=== PATIENT | female | born 1995 | race Caucasian/White ===

== ENCOUNTER 2018-02-28 16:25 | Outpatient (CLI) | payer OTHER ==
[2018-02-28 17:54] LABS: HGB - HEMOGLOBIN 10.3 g/dL (12.0-16.0); MEAN CORPUSCULAR HEMOGLOBIN 28.7 pg (27.0-31.0); MEAN CORPUSCULAR HGB CONC 33.6 g/dL (32.0-36.0); MEAN CORPUSCULAR VOLUME 85.4 fL (81.0-99.0); MEAN PLATELET VOLUME 9.1 fL (7.9-10.8); RED BLOOD COUNT 3.59 10^6/uL (4.20-5.40); RED CELL DISTRIBUTION WIDTH 13.1 % (12.0-15.0); WHITE BLOOD COUNT 11.2 x10^3/uL (4.8-10.8)
== END 2018-02-28 16:26 | disposition home or self-care (01) ==
LOC: LAB 16:25
PROVIDERS: ATTEND Nurse Practitioner Obstetrics & Gynecology
DX: Z36.9 Encounter for antenatal screening, unspecified (principal)
CPT/HCPCS: 82950; 86850

== ENCOUNTER 2018-04-29 13:08 | Outpatient (CLI) | payer OTHER ==
--- NOTE | 2018-04-29 16:14 | Ultrasound Report ---
OB FOLLOWUP: 04/29/2018 CLINICAL INDICATION: Two vessel cord, check growth. TECHNIQUE: Real-time scanning was performed with paper sales representative static images obtained. LAST MENSTRUAL PERIOD: 09/01/2017 Clinical Age: 34 weeks 2 days US Age: 35 weeks 4 days EFW Hadlock: 2581 grams EFW% Hadlock: 58% Heart Rate: 141 bpm EDC: 06/08/2018 US EDC: 05/30/2018 BPD Hadlock: 36 weeks 5 days; Mean mm 90 HC Hadlock: 36 weeks 4 days; Mean mm 323 AC Hadlock: 35 weeks 1 day; Mean mm 312 FL Hadlock: 33 weeks 5 days; Mean mm 65 Presentation: cephalic Placental Location: anterior Cervical Length: 3.4 cm Amniotic Fluid: ROSA 13.5 cm; MVP 4.9 cm FINDINGS There is a single viable intrauterine gestation, in cephalic presentation. heart rate is 141 BPM. Placenta is anterior, without evidence of previa. Amniotic fluid volume is normal, with ROSA of 13.5. By size, the fetus measures 35 weeks 4 days (34 weeks 2 days provided dating). Estimated weight by Hadlock method is 2581 grams, 58th percentile for provided dating. Note is again made of a two-vessel umbilical cord. IMPRESSION: SINGLE VIABLE INTRAUTERINE GESTATION, WITH SIZE IN KEEPING WITH THE PROVIDED DATA. TD: 04/29/2018 14:50 MTDD
== END 2018-04-29 13:09 | disposition home or self-care (01) ==
LOC: DI 13:08
PROVIDERS: ATTEND Registered Nurse
DX: Q27.0 Congenital absence and hypoplasia of umbilical artery (principal)
CPT/HCPCS: 76816

== ENCOUNTER 2018-05-13 14:54 | Outpatient (CLI) | payer OTHER | END 2018-05-13 14:55 | disposition home or self-care (01) | LOC: LAB.R 14:54 | PROVIDERS: ATTEND Nurse Practitioner Obstetrics & Gynecology | DX: Z36.85 Encounter for antenatal screening for Streptococcus B (principal) | CPT/HCPCS: 87081 ==

== ENCOUNTER 2018-05-13 15:04 | Outpatient (CLI) | payer OTHER ==
[2018-05-13 15:58] LABS: BASOPHILS % (AUTO) 0.1 %; EOSINOPHILS # (AUTO) 0.1 10^3/uL (0.0-0.7); EOSINOPHILS % (AUTO) 0.7 %; HGB - HEMOGLOBIN 9.5 g/dL (12.0-16.0); LYMPHOCYTES % (AUTO) 18.3 %; MEAN CORPUSCULAR HEMOGLOBIN 27.8 pg (27.0-31.0); MEAN CORPUSCULAR HGB CONC 33.7 g/dL (32.0-36.0); MEAN CORPUSCULAR VOLUME 82.6 fL (81.0-99.0); MEAN PLATELET VOLUME 9.9 fL (7.9-10.8); MONOCYTES # (AUTO) 0.7 10^3/uL (0.0-1.0); MONOCYTES % (AUTO) 6.4 %; NEUTROPHILS # (AUTO) 8.1 10^3/uL (1.5-6.6); NEUTROPHILS % (AUTO) 74.5 %; PLT - PLATELET COUNT 192 10^3/uL (130-450); RED BLOOD COUNT 3.43 10^6/uL (4.20-5.40); RED CELL DISTRIBUTION WIDTH 13.8 % (12.0-15.0); WHITE BLOOD COUNT 10.8 x10^3/uL (4.8-10.8)
[2018-05-13 16:00] LABS: URIC ACID 3.7 mg/dL (2.6-7.2)
[2018-05-13 16:58] LABS: CREATININE,URINE 43.1 mg/dL; TOTAL PROTEIN,URINE TIMED < 6 mg/dL
[2018-05-13 17:51] VITALS: BP 129/70
== END 2018-05-13 16:20 | disposition home or self-care (01) ==
LOC: WFO 15:04 → FBP 15:05 → WFO 16:20
PROVIDERS: ATTEND Nurse Practitioner Obstetrics & Gynecology
DX: O13.3 Gestational [pregnancy-induced] hypertension without significant proteinuria, third trimester (principal); Z3A.36 36 weeks gestation of pregnancy; Z36.85 Encounter for antenatal screening for Streptococcus B
CPT/HCPCS: 59025; 82570; 83615; 84156; 84450; 84550; 85025; 87081

== ENCOUNTER 2018-05-14 08:00 | Outpatient (CLI) | payer OTHER ==
[2018-05-14 20:01] LABS: TOTAL PROTEIN,URINE TIMED 10 mg/dL
[2018-05-14 20:04] LABS: TOTAL PROTEIN 24HR,URINE 160 mg/24hr (40-150); TOTAL VOLUME 24HRS,URINE 1600 mL
== END 2018-05-14 08:01 | disposition home or self-care (01) ==
LOC: LAB.R 08:00
PROVIDERS: ATTEND Nurse Practitioner Obstetrics & Gynecology
DX: O13.3 Gestational [pregnancy-induced] hypertension without significant proteinuria, third trimester (principal)
CPT/HCPCS: 84156

== ENCOUNTER 2018-06-02 13:24 | Inpatient (IN) | payer OTHER ==
[~2018-06-02 13:24] MED LIST: LACTATED RINGERS 1,000 ML IV ONE; OXYTOCIN/SODIUM CHLORIDE 500 ML IV ONE; SODIUM CHLORIDE FLUSH 0.9% 10 ML SYRINGE ONE
[2018-06-02] MEDS ORDERED: OXYTOCIN/SODIUM CHLORIDE 250 ML IV ONE (13:52)
[2018-06-02] MEDS ORDERED: ACETAMINOPHEN 325 MG TABLET PO PRN (13:52)
[2018-06-02] MEDS ORDERED: SODIUM CHLORIDE FLUSH 0.9% 10 ML SYRINGE IVP PRN (13:52)
[2018-06-02] MEDS ORDERED: fentaNYL 100 MCG/2 ML VIAL IVP PRN (13:52)
[2018-06-02] MEDS ORDERED: PENICILLIN G POTASSIUM 5,000,000 UNIT in SODIUM CHLORIDE 0.9% MINIBAG 100 ML IV ONE (13:52)
[2018-06-02] MEDS: LACTATED RINGERS 1,000 ML IV SCH ×2 (14:00→22:12)
--- NOTE | 2018-06-02 14:01 | HISTORY & PHYSICAL EXAMINATION ---
Admit History - Instructions [place]: -Left hand click circles element as positive or present. -Right hand click slashes element as negative or not present. - Visit Reason Visit Reason: Other (gestational HTN w/o s/sx PET; Pitocin induction of labor in setting of favorable cervical status) - : 1 Parity: 0 Premature: 0 Ectopic: 0 : 0 Care: positive: [facility] (Transfer @ 21 weeks) Risk/History: positive: None Complications This : positive: induced HTN, Other ( anemia; 2VC w/ EFW 58th percentile in 3rd trimester) Smoking Status: Never smoker - Mother's Labs Mother's Blood Type: positive: B Mother's RH: positive: Positive GBS: positive: Group B Strep Positive Rubella Status: positive: Immune Meds/Allgy - Allergies Allergies/Adverse Reactions: Allergies Allergy/AdvReac Type Severity Reaction Status Date / Time No Known Drug Allergies Allergy Verified 05/13/18 15:24 Review of Systems - Constitutional Constitutional: denies: Fatigue, Fever, Chills - Eyes Eyes: denies: Blurred vision, Spots in vision, Dipolpia - Cardiovascular Cariovascular: reports: Edema. denies: Irregular heart rate, Palpitations, Chest pain - Respiratory Respiratory: reports: SOB with exertion. denies: Cough, Sputum production, SOB at rest - Gastrointestinal Gastrointestinal: denies: Abdominal pain, Constipation, Diarrhea, Change in bowel habits, Nausea, Vomiting - Genitourinary Genitourinary: reports: Frequency, Urgency. denies: Dysuria - Musculoskeletal Musculoskeletal: reports: Back pain. denies: Muscle pain, Muscle aches - Integumentary Integumentary: denies: Rash, Pruritis, Lesions - Neurological Neurological: denies: General weakness, Focal weakness, Headache, Dizziness, Numbness - Psychiatric Psychiatric: reports: Anxiety. denies: Depression - Hematologic/Lymphatic Hematologic/Lymphatic: reports: Anemia - All Other Systems All Other Systems: reports: Other (No changes in vaginal d/c, no LOF/VB. +FM) Physical - Abdominal Exam Contraction Frequency (min/apart): rare Contraction Intensity: positive: Mild Uterine Resting Tone: positive: Soft - Monitoring Heart Rate Baseline: 130 Strip Review: positive: Category I - Presentation Presentation: positive: Vertex - Vaginal Exam Membranes: positive: Membranes intact Dilation (in cm): 3 Effacement (%): 75 Station: positive: 0 Cervical Position: positive: Anterior (soft) - Speculum Exam Speculum Exam Performed: positive: No Findings: negative: Gross leak - Other Notes Labor Progress Note/Additional Text: Dung Phillips is a 23 y/o @ 39w1d by early first trimester US who received care beginning @ 9 weeks at [facility] then chose to transfer care @ 21 weeks' gestation to [facility]. She was seen for a total of 12 visits. Her care was complicated by 2VC on US w/o growth restriction. She had ALISHA in the third trimester that demonstrated EFW 58th percentile. She additionally has mild anemia & a positive GBS screening. She developed increased BP in the late 3rd trimester that has now been persistently >140/90 w/ o severe-range BPs & no s/sx PET. PMH: Unremarkable PSH: None POBhx: primiparous Pgynhx: NILM pap 2017, denies hx of STI Famhx: non-contributory PE: GEN: AAOX3, NAD [place] gravid female HEENT: Grossly normocephalic, atraumatic LUNGS: b/l CTA t/o HEART: RRR nls1s2, no murmur ABD: gravid, NT, ND, lie longitudinal, presentation cephalic EFW 7.5-8# : No lesion, SVE: 3/75/0, antioer, soft MS: FROM t/o, no deformity; +1 b/l pedal edema SKIN: warm, well-perfused, c/d/i NEURO: no focal deficit PSYCH: mild anxiety, no depression; otherwise normal mood & affect Plan for Labor - Plan For Labor I expect patient to be DC'd or transferred within 96 hours.: Yes Plan for Labor: 1. Admit 2. PET labs 3. Careful BP monitoring 4. PARQ Pitocin, begin Pitocin infusion & titrate per protocol to adequate contraction pattern by tocometry 5. Epidural per pt request 6. Reassess cervical status x4 hours, earlier PRN
[2018-06-02 14:33] LABS: BASOPHILS % (AUTO) 0.2 %; EOSINOPHILS # (AUTO) 0.1 10^3/uL (0.0-0.7); EOSINOPHILS % (AUTO) 0.6 %; HGB - HEMOGLOBIN 10.7 g/dL (12.0-16.0); MEAN CORPUSCULAR HEMOGLOBIN 27.7 pg (27.0-31.0); MEAN CORPUSCULAR HGB CONC 33.7 g/dL (32.0-36.0); MEAN CORPUSCULAR VOLUME 82.1 fL (81.0-99.0); MEAN PLATELET VOLUME 9.7 fL (7.9-10.8); MONOCYTES # (AUTO) 0.5 10^3/uL (0.0-1.0); MONOCYTES % (AUTO) 4.8 %; NEUTROPHILS # (AUTO) 7.3 10^3/uL (1.5-6.6); NEUTROPHILS % (AUTO) 74.4 %; PLT - PLATELET COUNT 206 10^3/uL (130-450); RED BLOOD COUNT 3.85 10^6/uL (4.20-5.40); RED CELL DISTRIBUTION WIDTH 14.9 % (12.0-15.0); WHITE BLOOD COUNT 9.8 x10^3/uL (4.8-10.8)
[2018-06-02 14:53] LABS: BILIRUBIN,URINE NEGATIVE (NEGATIVE); GLUCOSE, URINE (UA) NEGATIVE (NEGATIVE); KETONES,URINE (UA) NEGATIVE (NEGATIVE); LEUKOCYTE ESTERASE, URINE NEGATIVE (NEGATIVE); NITRITE,URINE NEGATIVE (NEGATIVE); OCCULT BLOOD,URINE NEGATIVE (NEGATIVE); PROTEIN,URINE NEGATIVE (NEGATIVE); UROBILINOGEN,URINE 0.2 (NORMAL) E.U./dL (NORMAL)
[2018-06-02 14:57] LABS: CLARITY,URINE CLEAR (CLEAR)
[2018-06-02 14:57] LABS: CREATININE 0.4 mg/dL (0.4-1.0); URIC ACID 3.8 mg/dL (2.6-7.2)
[2018-06-02] MEDS: OXYTOCIN/SODIUM CHLORIDE 500 ML IV SCH (15:00)
[2018-06-02 15:03] LABS: CREATININE,URINE 67.8 mg/dL; PROTEIN/CREATININE RATIO,URINE 0.2 (<=0.2)
[2018-06-02] MEDS ORDERED: fent/BUPIV 2 MCG/0.125% 250 ML EP ONE (16:20)
[2018-06-02] MEDS ORDERED: NALOXONE 0.4 MG/ML VIAL IVP PRN (16:38)
[2018-06-02] MEDS ORDERED: NALBUPHINE 10 MG/ML AMP IVP PRN (16:38)
[2018-06-02] MEDS ORDERED: ePHEDrine 50 MG/ML VIAL IVP PRN (16:38)
[2018-06-02] MEDS ORDERED: fent/BUPIV 2 MCG/0.125% 250 ML EP PRN (16:38)
[2018-06-02] MEDS ORDERED: ONDANSETRON 4 MG/2 ML VIAL IVP PRN (16:38)
[2018-06-02] MEDS ORDERED: METOCLOPRAMIDE 10 MG/2 ML VIAL IVP PRN (16:38)
[2018-06-02] MEDS ORDERED: diphenhydrAMINE INJ 50 MG/ML VIAL IVP PRN (16:38)
[2018-06-02] MEDS ORDERED: LACTATED RINGERS 500 ML IV ONE (16:38)
[2018-06-02] MEDS: PENICILLIN G POTASSIUM 2,500,000 UNIT in SODIUM CHLORIDE 0.9% 100ML 100 ML IV SCH ×2 (19:17→23:00)
[2018-06-02] MEDS: SODIUM CHLORIDE FLUSH 0.9% 10 ML SYRINGE IVP SCH (19:43)
[2018-06-02] MEDS: CALCIUM CARBONATE CHEW 500 MG TABLET PO PRN (21:20)
[2018-06-02] MEDS: ONDANSETRON 4 MG/2 ML VIAL IVP PRN (23:27)
--- NOTE | 2018-06-03 01:28 | PROVIDER PROGRESS NOTE ---
Labor Progress Note - Uterine Monitoring Uterine Monitoring Mode: positive: External toco Contraction Frequency (min/apart): 3-4 Contraction Intensity: positive: Mild to moderate Uterine Resting Tone: positive: Soft - Monitoring Monitor Mode: positive: External ultrasound Heart Rate Baseline: 130 Heart Rate Variability: positive: Moderate (6-25 bmp) Accelerations: positive: Present, 15x15 Decelerations: positive: None Strip Review: positive: Category I - Vaginal Exam Dilation (in cm): 3 Effacement (%): 75 Station: -1 (per RN) - Labor Progress Note Labor Progress Note/Additional Text: S: Dung is able to rest w/ epidural anesthesia in place. She has been sleeping intermittently. Family @ bedside, supportive O: AAOx3, NAD [place] gravid female VSS EFM: BL 130bpm, +accels, no decels, mod jennifer TOCO: UCs q3-4 min x60 seconds, palp moderate SVE: 3/75/-1 per RN on 10mU/min of Pitocin A: 23 y/o @ 39w2d by first trimester US, gestational HTN w/o s/sx PET Normotensive @ present w/o severe-range BPs GBS positive w/ IBOW, s/p 2 doses IV PCN for prophylaxis FHTs cat I No significant cervical change w/ slow titration of Pitocin infusion over a period of 10 hours Adequate pain control w/ epidural anesthesia P: 1. Continue to titrate Pitocin infusion per protocol to achieve adequate labor pattern by tocometry 2. Continue GBS prophylaxis w/ IV PCN per protocol 3. Plan AROM & IUPC placement to direct titration of Pitocin infusion if no cervical change @ next evaluation (x4 hours, earlier PRN) 4. Ongoing careful BP monitoring w/ antihypertensive therapy for severe-range BPs 5. Encouraged maternal rest
[2018-06-03] MEDS: PENICILLIN G POTASSIUM 2,500,000 UNIT in SODIUM CHLORIDE 0.9% 100ML 100 ML IV SCH ×2 (03:20→07:19)
--- NOTE | 2018-06-03 04:33 | PROVIDER PROGRESS NOTE ---
Labor Progress Note - Uterine Monitoring Uterine Monitoring Mode: positive: External toco Contraction Frequency (min/apart): 3 Contraction Intensity: positive: Moderate Uterine Resting Tone: positive: Soft - Monitoring Monitor Mode: positive: External ultrasound Heart Rate Baseline: 125 Heart Rate Variability: positive: Moderate (6-25 bmp) Accelerations: positive: Present, 15x15 Decelerations: positive: None Strip Review: positive: Category I - Vaginal Exam Dilation (in cm): 4 Effacement (%): 75 Station: -1 Cervical Position: Anterior - Labor Progress Note Labor Progress Note/Additional Text: S: Dung is comfortable w/ her epidural, although she reports more sensation on her R side than her L secondary to prolonged positioning in L lateral recumbent. Her mother is awake @ the bedside & is involved & very supportive; her partner is sleeping nearby. O: AAOx3, NAD [place] female; VSS EFM: BL 125bpm, +accels, no decels, mod variability TOCO: erratic uterine contractions w/o clear consistency, IUPC placed w/ ease s/ p AROM for moderate CAF to facilitate Pitocin titration SVE: 4-5/75/-1, anterior, soft A: 23 y/o @ 39w2d, IOL for GHTN w/o s/sx PET Normotensive @ present; no severe-range BPs GBS positive s/p 3 doses IV PCN AROM for CAF FHTs consistently cat I Adequate pain control w/ epidural anesthesia Slow cervical change w/ slow titration of Pitocin over a period of 13.5 hours to a maximum infusion rate of 10mU/min P: 1. Continue GBS prophylaxis w/ IV PCN per protocol 2. Continue to titrate Pitocin infusion per protocol to achieve adequate labor per IUPC 3. Reassess cervical status s/p 2 hours of consistently adequate labor by MVU, earlier PRN 4. Reviewed optimal maternal positioning to facilitate descent 5. Encouraged maternal rest 6. Ongoing careful monitoring of BP w/ antihypertensive therapy for severe- range BPs 7. Reviewed plan of care w/ pt, pt's mother & RN @ bedside; all in agreement, without concerns
[2018-06-03] MEDS: LACTATED RINGERS 1,000 ML IV SCH ×2 (05:53→10:14)
[2018-06-03] MEDS: CALCIUM CARBONATE CHEW 500 MG TABLET PO PRN (06:44)
[2018-06-03] MEDS: SODIUM CHLORIDE FLUSH 0.9% 10 ML SYRINGE IVP SCH (07:41)
--- NOTE | 2018-06-03 08:32 | PROVIDER PROGRESS NOTE ---
Labor Progress Note - Uterine Monitoring Uterine Monitoring Mode: positive: IUPC Contraction Frequency (min/apart): 2-3 : baseline 25mmHg, peak 75mmHg, MVU presently 200 Contraction Intensity: positive: Strong Uterine Resting Tone: positive: Soft - Monitoring Monitor Mode: positive: External ultrasound Heart Rate Baseline: 135 Heart Rate Variability: positive: Moderate (6-25 bmp) Accelerations: positive: Present, 15x15 Decelerations: positive: None Strip Review: positive: Category I - Vaginal Exam Dilation (in cm): 4 Effacement (%): 90 Station: 0 (per RN) - Labor Progress Note Labor Progress Note/Additional Text: S: Dung is comfortable w/ epidural in place, was able to rest intermittently over the course of the night. O: AAOx3, NAD [place] female VSS EFM BL 135bpm, +accels, no decels, mod jennifer IUPC UCs q2-3 min, baseline 25mmHg, peak 75mmHg, MVUs presently >200 on 9mU/min of Pitocin SVE per RN @ 0800 4/90/0 A: 23 y/o @ 39w2d, IOL for GHTN w/o s/sx PET Normotensive @ present w/o severe-range BPs GBS positive s/p 4 doses IV PCN for prophylaxis Adequate labor pattern by IUPC w/ progressive cervical change AROM x4 hours for CAF, afebrile Adequate pain control w/ epidural anesthesia FHTs consistently cat I P: 1. Continue GBS prophylaxis w/ IV PCN per protocol 2. Continue to titrate Pitocin infusion per protocol to maintain adequate labor pattern per IUPC 3. Reassess cervical status x4 hours, earlier PRN 4. Continue ongoing careful BP monitoring w/ antihypertensive therapy for severe -range BPs 5. Encouraged maternal rest
[2018-06-03] MEDS: ONDANSETRON 4 MG/2 ML VIAL IVP PRN ×2 (09:18→18:46)
[2018-06-03] MEDS ORDERED: LIDOCAINE 1% 50 ML MDV ONE (12:47)
[2018-06-03] MEDS ORDERED: miSOPROStol 200 MCG TABLET ONE (12:48)
[2018-06-03] MEDS ORDERED: MAGNESIUM HYDROXIDE 2,400 MG/30 ML UDC PO PRN (13:12)
[2018-06-03] MEDS ORDERED: HYDROCORTISONE 1% CREAM 28 GM TUBE PR PRN (13:12)
[2018-06-03] MEDS ORDERED: WITCH HAZEL/GLYCERIN 1 EACH MED..PAD TOP PRN (13:12)
[2018-06-03] MEDS ORDERED: OXYTOCIN/SODIUM CHLORIDE 250 ML IV ONE (13:12)
[2018-06-03] MEDS ORDERED: miSOPROStol 200 MCG TABLET SL ONE (13:12)
[2018-06-03] MEDS ORDERED: HYDROCORTISONE/PRAMOXINE 10 GM PR PRN (13:12)
--- NOTE | 2018-06-03 13:12 | DELIVERY NOTE ---
Delivery Note - Labor Labor: positive: Augmented by ARM, Induced by oxytocin - Delivery Method Infant Delivery Method: positive: Spontaneous vaginal delivery - Presentation Presentation: positive: VICENTE - right occiput anterior - Nuchal Cord Nuchal Cord: positive: Present (x1, loose, reduced easily prior to delivery of shoulders/body), Reduced - Anesthetic Anesthetic Type: - Amniotic Fluid Description Amniotic Fluid Description: positive: Clear (AROM for moderate CAF @ 0430, for a total ruptured duration of 8 hours, 17 minutes, afebrile t/o) - Episiotomy Type Episiotomy Type: positive: None - Laceration Laceration: positive: 2nd degree - Suture Suture Type: positive: Vicryl Suture Size: positive: 2-0 - Delivery Outcome Delivery Outcome: positive: Livebirth - [place]: positive: Placed in direct skin contact with mother, Stimulated, Warmed , [place] used sex: positive: Male - Cord Cord: positive: 2 vessels - Placenta Placenta: positive: Intact, Spontaneous - Estimated Blood Loss Estimated Blood Loss (in cc): 450 - Post Delivery Events Post Delivery Events: positive: No post delivery events - Delivery Comments (Free Text/Narrative) Delivery Comments (Free Text/Narrative): Dung Phillips is a 23 y/o [id number] who presented for IOL w/ favorable cervical status @ 39w1d for GHTN w/o severe-range BPs & no s/sx PET. She received epidural anesthesia for pain management & received IV PCN for GBS prophylaxis. She underwent AROM for moderate CAF @ 04:30, for a total ruptured duration of 8 hours, 17 minutes, afebrile t/o. She underwent IUPC placement to facilitate appropriate titration of Pitocin infusion. Pitocin infusion titrated per protocol over a period of 21 hours to a maximum infusion rate of 11mU/min. FHTs monitored electronically t/o & consistently category I. Found to be complete & +3 @ 12:20, for a total first stage duration of 8 hours. Pushed w/ spontaneous urge & direction to viable male in VICENTE position w/ loose nuchal cord that was easily reduced prior to delivery of shoulders/body @ 12:47 , for a total 2nd stage duration of 27 minutes w/ 5 minutes of active pushing. Infant vigorous w/ spontaneous, lusty cry. Placed to maternal abd for drying/ stim. Delayed cord clamping until cessation of pulsation, then cord clamped x2 by CNM, cut by FOB. 2VC noted, cord blood obtained. AMTSL w/ Pitocin in IV fluids. Placenta delivered spontaneously & intact, Telly, @ 12:50, for a total 3rd stage duration of 3 minutes. FF U-1. Vagina & perineum inspected & 2nd degree perineal laceration noted. Repaired under epidural anesthesia w/ 2- 0 vicryl. Brisk vaginal bleeding during repair, 800mcg buccal misoprostol administered & JOHAN evacuated for moderate clot. EBL 450mL. Mother & stable, plans to breastfeed. Apgars 9/9, weight pending, nuzzling @ breast w/ in 20 minutes of delivery.
[2018-06-03] MEDS ORDERED: IBUPROFEN 800 MG TABLET PO SCH (14:00)
[2018-06-03 14:12] LABS: HIV AG/AB 4TH GEN NON-REACTIVE (NON-REACTIVE)
[2018-06-03] MEDS: OXYTOCIN/SODIUM CHLORIDE 500 ML IV SCH (15:52)
[2018-06-03] MEDS ORDERED: SODIUM CHLORIDE FLUSH 0.9% 10 ML SYRINGE ONE (18:46)
[2018-06-03] MEDS ORDERED: ACETAMINOPHEN 160 MG/5 ML SUSP UDC PO PRN (19:30)
[2018-06-03] MEDS: IBUPROFEN 100 MG/5 ML UDC PO SCH (20:19)
[2018-06-03] MEDS ORDERED: DOCUSATE SODIUM 100 MG CAPSULE PO SCH (21:00)
[2018-06-03] MEDS: DOCUSATE SODIUM 100 MG/10 ML UDC PO SCH (21:11)
[2018-06-04] MEDS: IBUPROFEN 100 MG/5 ML UDC PO SCH ×3 (02:08→18:17)
[2018-06-04] MEDS: DOCUSATE SODIUM 100 MG/10 ML UDC PO SCH (08:21)
[2018-06-04] MEDS: ACETAMINOPHEN 160 MG/5 ML SUSP UDC PO PRN ×2 (12:41→18:17)
--- NOTE | 2018-06-04 14:35 | PROVIDER PROGRESS NOTE ---
Subjective - Prog Note Date Prog Note Date: 06/04/18 Prog Note Time: 14:30 - Subjective Pt reports feeling: Improved Subjective: uDng is doing well. She is ambulating & voiding w/o difficulty. She reports minimal lochia rubra. She is trying to breastfeed w/ some challenges r/t latch secondary to infant ankylglossia. She is pumping & has copious colostrum. She denies discomfort & is not requiring any analgesia. Objective - Vital Signs/Intake & Output Reviewed Vital Signs: Yes Vital Signs: Vital Signs x48h Temp Pulse Resp BP Pulse Ox 06/04/18 12:04 36.9 C 69 18 130/74 98 06/04/18 09:32 37.0 C 67 18 133/73 H 100 Intake & Output: Intake & Output 06/01/18 06/02/18 06/03/18 06/04/18 23:59 23:59 23:59 23:59 Intake Total 2120 3220.333 600 Output Total 300 1300 Balance 1820 1920.333 600 - Objective General Appearance: positive: No acute distress, Alert Respiratory: positive: Chest non-tender, No respiratory distress, Breath sounds nml Cardiovascular: positive: Regular rate & rhythm, No murmur, No gallop Abdomen: positive: Non-tender, No distention, Other (FFU_2) Skin: positive: Color nml, No rash, Warm, Dry Extremities: positive: Non-tender, Full ROM, Nml appearance, No pedal edema. negative: Calf tenderness, Joint swelling, Flaquita's sign/cords Neurologic/Psychiatric: positive: Oriented x3, CN's nml (2-12), Motor nml, Sensation nml, Mood/affect nml - Lab Results Fish Bones: 06/02/18 14:20 06/02/18 14:37 Assessment/Plan - Problem List (1) (normal spontaneous vaginal delivery) Impression: 23 y/o s/p w/ 2nd degree perineal laceration w/ repair, PPD #1 Normal uterine involution Adequate pain control w/o analgesia challenges 1. Continue routine pp care 2. Reviewed , frenotomy, will continue in ongoing fashion 3. Anticipate d/c home PPD#2
[2018-06-04] MEDS: OXYTOCIN/SODIUM CHLORIDE 500 ML IV SCH (18:18)
[2018-06-05] MEDS: IBUPROFEN 100 MG/5 ML UDC PO SCH ×4 (00:32→15:04)
[2018-06-05] MEDS: ACETAMINOPHEN 160 MG/5 ML SUSP UDC PO PRN ×3 (00:36→12:42)
[2018-06-05] MEDS: DOCUSATE SODIUM 100 MG/10 ML UDC PO SCH ×2 (05:03→09:15)
--- NOTE | 2018-06-05 09:58 | Discharge Plan ---
Discharge Plan Disposition: 01 Home, Self Care Condition: Good Diet: Regular Activity Restrictions: pelvic rest x6wks Shower Restrictions: No Driving Restrictions: No Weight Bearing: Full Weight Instruction Topics: Vaginal After, Breastfeed How To, Exercises Kegel Additional Instructions or Follow Up instructions: x1 week w/ CNM No Smoking: If you smoke, Please STOP! Call for help. Follow-up with: Meme Justice CNM, SUZI [Provider Admit Priv/Credential] -
--- NOTE | 2018-06-05 10:00 | DISCHARGE SUMMARY ---
"Discharge Summary Admit Date: 06/02/18 Discharge Date: 06/05/18 Discharging Provider: anthony Code Status: Attempt Resuscitation Condition at Discharge: Good Discharge Disposition: 01 Home, Self Care Discharge Facility [facility]: [facility] - DIAGNOSES Admission Diagnoses: ghtn 39 weeks' gestation gbs positive Discharge Diagnoses with Status of Each Condition: 2nd degree perineal laceration w/ repair - HPI History of Present Illness: Dung Phillips is a 23 y/o [id number] who was admitted for Pitocin induction of labor for gestational HTN @ 39 weeks' gestation w/o s/sx PET in the setting of favorable cervical status. She received Pitocin infusion to maximum of 11 mU/ min. She underwent AROM & IUPC placement to direct Pitocin titration. She received an epidural for labor anesthesia. She progressed steadily to complete dilatation & delivered a viable male vaginally over a 2nd degree perineal laceration w/o complication. Her laceration was repaired. - CONSULTS | PROCEDURES Consultations: anesthesia Procedures: Epidural placement AROM IUPC placement 2nd degree perineal laceration repair - HOSPITAL COURSE Hospital Course: , Dung is doing well. She is ambulating & voiding w/o difficulty. She has had a BM & is tolerating a regular diet. She is having minimal lochia rubra & is not utilizing any analgesia. She is w/ some challenges r/t infant ankylglossia. She is planning pp paragard for contraception. She will have 84 days off work. Her partner will have 2 weeks off the assist her & she has additional excellent social support. She is able to fully articulate pp warning s/sx, including pp depression s/sx, and pp aftercare instructions. She is ready to leave the hospital. - ALLERGIES Allergies/Adverse Reactions: Allergies Allergy/AdvReac Type Severity Reaction Status Date / Time No Known Drug Allergies Allergy Verified 05/13/18 15:24 - MEDICATIONS Home Medications: Ambulatory Orders Medication Instructions Recorded Confirmed Calcium Carbonate [Tums (Calcium 1,000 mg PO Q4HR PRN tablet 06/05/18 Carbonate 500mg)] - PHYSICAL EXAM AT DISCHARGE General Appearance: positive: No acute distress, Alert Respiratory: positive: Chest non-tender, No respiratory distress, Breath sounds nml Cardiovascular: positive: Regular rate & rhythm, No murmur Abdomen: positive: Non-tender, No distention, Other (FF U-3) Skin: positive: Color nml, No rash, Warm, Dry Extremities: positive: Non-tender, Full ROM, Nml appearance, No pedal edema. negative: Calf tenderness, Flaquita's sign/cords Neurologic/Psychiatric: positive: Oriented x3, CN's nml (2-12), Motor nml, Sensation nml, Mood/affect nml - LABS Result Diagrams: 06/02/18 14:20 06/02/18 14:37 - FOLLOW UP Follow Up: x1 week for support, x3 weeks for pp care, x8 weeks for annual exam in outpt clinic, earlier PRN - TIME SPENT Time Spent in Discharge (Minutes): 30"
[2018-06-05 13:21] VITALS: BP 139/74
== END 2018-06-05 19:20 | disposition home or self-care (01) | DRG 775 ==
LOC: EDSTATUS 13:24 → WFO 13:24 → FBP 13:25 → WFO 13:51 → FBP 13:52
PROVIDERS: ADMIT Registered Nurse; ATTEND Registered Nurse
PROC: 3E033VJ Introduction of Other Hormone into Peripheral Vein, Percutaneous Approach (ICD-10-PCS; 2018-06-02)
PROC: 10E0XZZ Delivery of Products of Conception, External Approach (ICD-10-PCS; principal; 2018-06-03)
PROC: 0KQM0ZZ Repair Perineum Muscle, Open Approach (ICD-10-PCS; 2018-06-03)
PROC: 10907ZC Drainage of Amniotic Fluid, Therapeutic from Products of Conception, Via Natural or Artificial Opening (ICD-10-PCS; 2018-06-03)
PROC: 10H07YZ Insertion of Other Device into Products of Conception, Via Natural or Artificial Opening (ICD-10-PCS; 2018-06-03)
DX: O13.4 Gestational [pregnancy-induced] hypertension without significant proteinuria, complicating childbirth (principal); Z37.0 Single live birth; Z3A.39 39 weeks gestation of pregnancy; O99.824 Streptococcus B carrier state complicating childbirth; O70.1 Second degree perineal laceration during delivery; O69.89X0 Labor and delivery complicated by other cord complications, not applicable or unspecified; O69.81X0 Labor and delivery complicated by cord around neck, without compression, not applicable or unspecified; O99.02 Anemia complicating childbirth; D64.9 Anemia, unspecified; O99.344 Other mental disorders complicating childbirth; F41.9 Anxiety disorder, unspecified
CPT/HCPCS: 36415; 81001; 81003; 82565; 82570; 83615; 84156; 84450; 84550; 85025; 86780; 87086; 87389

== ENCOUNTER 2018-06-27 16:23 | Outpatient (CLI) | payer OTHER | END 2018-06-30 16:24 | disposition home or self-care (01) | LOC: LAB.R 16:23 | PROVIDERS: ATTEND Registered Nurse | DX: R82.99 Other abnormal findings in urine (principal) | CPT/HCPCS: 87086 ==